=== PATIENT | female | born 1970 | race Caucasian/White ===

== ENCOUNTER → 2018-02-23 03:39 | Emergency (ER) | payer SELFPAY ==
[~2018-02-23 03:39] MED LIST: NS 0.9% 1000 ML* 1,000 ML IV ONE; Ondansetron INJ* 2 MG/ML VIAL IV ONE
--- NOTE | 2018-02-23 04:11 | ED ---
Complex/Multi-Sys Presentation - HPI Summary HPI Summary: A 47 y/o female presents to the ED c/o right arm pain since 18:00 02/22/2018. She describes the pain as an aching pain that worsens with movement. She also claims to have nausea, 5 episodes of diarrhea, feels clammy and she does not vomit but is having dry heaves. She denies CP, SOB or abd pain. - History Of Current Complaint Chief Complaint: EDNauseaVomitDiarrh Time Seen by Provider: 02/23/18 03:49 Hx Obtained From: Patient Onset/Duration: Sudden Onset Timing: Constant Aggravating Factor(s): movement - Allergies/Home Medications Allergies/Adverse Reactions: Allergies Allergy/AdvReac Type Severity Reaction Status Date / Time bandaids Allergy makes skin Uncoded 02/23/18 03:45 raw when left on 1-2+ days PMH/Surg Hx/FS Hx/Imm Hx Endocrine/Hematology History: Denies: Hx Diabetes Cardiovascular History: Reports: Hx Angina, Hx Hypertension - ON MEDICATION FOR Denies: Hx Coronary Artery Disease, Hx Hypercholesterolemia, Hx Myocardial Infarction, Hx Valvular Heart Disease Respiratory History: Denies: Hx Asthma, Hx Chronic Obstructive Pulmonary Disease (COPD) GI History: Reports: Hx Gastroesophageal Reflux Disease, Other GI Disorders - STOMACH NOTED ON IRRITATION NOTED ON EGD Sensory History: Reports: Hx Contacts or Glasses - INSTRUCTS GIVEN Denies: Hx Hearing Aid Opthamlomology History: Reports: Hx Contacts or Glasses - INSTRUCTS GIVEN Psychiatric History: Reports: Hx Bipolar Disorder - Cancer History Cancer Type, Location and Year: Basal Cell Skin CA arm and back, removed Hx Chemotherapy: No Hx Radiation Therapy: No - Surgical History Surgery Procedure, Year, and Place: hysterectomy 2009. cystocele, rectocele 2010. Bariatric surgery September 2015 Hx Anesthesia Reactions: No Infectious Disease History: No Infectious Disease History: Denies: Traveled Outside the [place] in Last 30 Days - Family History Known Family History: Positive: Hypertension - grandmother Negative: Cardiac Disease, Diabetes - Social History Alcohol Use: Occasionally Substance Use Type: Reports: None Smoking Status (MU): Former Smoker Amount Used/How Often: 1 PPD X 10-12 YEARS OFF AND ON Have You Smoked in the Last Year: No Review of Systems Positive: Skin Diaphoresis. Negative: Fever Negative: Chest Pain Negative: Shortness Of Breath Positive: Diarrhea, Nausea, Other - Positive: Dry-heaves. Negative: Abdominal Pain, Vomiting Positive: Myalgia - right arm pain All Other Systems Reviewed And Are Negative: Yes Physical Exam - Summary Physical Exam Summary: Appearance: Well appearing, no pain distress Skin: warm, dry, reflects adequate perfusion Head/face: normal Eyes: EOMI, TONY ENT: normal Neck: supple, non-tender Respiratory: CTA, breath sounds present Cardiovascular: tachycardic, regular rhythm, pulses symmetrical Abdomen: non-tender, soft Bowel: present Musculoskeletal: normal, strength/ROM intact Neuro: normal, sensory motor intact, A&Ox3 Triage Information Reviewed: Yes Vital Signs On Initial Exam: Initial Vitals Temp Pulse Resp BP Pulse Ox 99.5 F 119 16 144/93 98 02/23/18 03:41 02/23/18 03:41 02/23/18 03:41 02/23/18 03:41 02/23/18 03:41 Vital Signs Reviewed: Yes Diagnostics - Vital Signs Vital Signs Temp Pulse Resp BP Pulse Ox 02/23/18 03:41 99.5 F 119 16 144/93 98 - Laboratory Result Diagrams: 02/23/18 04:44 02/23/18 04:38 Lab Statement: Any lab studies that have been ordered have been reviewed, and results considered in the medical decision making process. - Radiology CXR Radiology Interpretation Completed By: ED Physician - negative-normal CXR. Pending official radiology report. - EKG 04:14 Cardiac Rate: NL - 98bpm EKG Rhythm: Sinus Rhythm Complex Multi-Symp Course/Dx Course Of Treatment: A 47 y/o female presents to the ED c/o right arm pain since 18:00 02/22/2018. She also claims to have nausea, 5 episodes of diarrhea, feels clammy and she does not vomit but is having dry heaves. Her PE revealed tachycardia. Her EKG is normal and her CXR is negative. The pt does not want to wait for an US so she left and plans on coming back. She will be discharged with a diagnosis of nausea, vomiting and right arm pain. - Diagnoses Differential Diagnoses/HQI/PQRI: Cardiac Ischemia, Metabolic Abnormality Provider Diagnoses: Nausea & vomiting, Right arm pain Discharge - Sign-Out/Discharge Documenting (check all that apply): Patient Departure - DC - Discharge Plan Condition: Stable Disposition: HOME Prescriptions: Ondansetron [Zofran Odt] 4 mg PO TID #15 tab.rapdis Patient Education Materials: Acute Nausea and Vomiting (ED), Arm Pain (ED) Referrals: [facility] [place] [facility]ERR[facility] [Outside] - 3 Days Additional Instructions: Return to the ED if you experience any new or worsening symptoms. - Billing Disposition and Condition Condition: STABLE Disposition: Home - Attestation Statements Document Initiated by Scribe: Yes Documenting Scribe: Amarjit Witt Provider For Whom Maritza is Documenting (Include Credential): Valentin Banda MD Scribe Attestation: Amarjit Woods, scribed for Valentin Banda MD on 02/23/18 at 0601. Scribe Documentation Reviewed: Yes Provider Attestation: The documentation as recorded by the Amarjit corbin accurately reflects the service I personally performed and the decisions made by me, Valentin Banda MD
[2018-02-23 04:52] LABS: ABS Basophils 0 10^3/ul (0-0.2); ABS Eosinophils 0.1 10^3/ul (0-0.6); ABS Lymphocytes 0.4 10^3/ul (1.0-4.8); ABS Monocytes 0.6 10^3/ul (0-0.8); ABS Neutrophils 8.7 10^3/ul (1.5-7.7); ABS Nucleated RBC 0 10^3/ul; Eosinophil % 0.8 % (0-6); Hematocrit 38 % (35-47); Lymphocyte % 4.1 % (25-47); Mean Corpuscular HGB Conc 34 g/dl (31-36); Mean Corpuscular Hemoglobin 32 pg (27-31); Mean Corpuscular Volume 94 fL (80-97); Mean Platelet Volume 7.2 um3 (7.4-10.4); Nucleated Red Blood Cells % 0; Platelet Count 213 10^3/ul (150-450); Red Blood Count 4.07 10^6/ul (4.00-5.40); Red Cell Distribution Width 13 % (10.5-15); White Blood Count 9.8 10^3/ul (3.5-10.8)
[2018-02-23 05:09] LABS: EGFR Non-African American 93.6 (>60)
[2018-02-23 05:41] VITALS: BP 119/78
--- NOTE | 2018-02-23 08:14 | RAD ---
Indication: Chest pain. Single frontal view of the chest performed at 0422 hours was reviewed. Comparison is made with previous exam dated June 15, 2012. No mediastinal shift is noted. Heart is of normal size and configuration. Lung lamar appear clear. IMPRESSION: NO ACTIVE CARDIOPULMONARY DISEASE IS NOTED. R0
== END | disposition home or self-care (01) ==
LOC: ED 03:39
DX: R11.2 Nausea with vomiting, unspecified (principal); M79.601 Pain in right arm; I10 Essential (primary) hypertension; Z85.828 Personal history of other malignant neoplasm of skin; F31.9 Bipolar disorder, unspecified; K21.9 Gastro-esophageal reflux disease without esophagitis
CPT/HCPCS: 36415; 71045; 80053; 83690; 84484; 84702; 85025; 93005; 96361; 96374; 99283; J2405

== ENCOUNTER 2021-02-09 12:09 | Observation (INO) ==
[2021-02-09 13:37] LABS: ABS Basophils 0.1 10^3/ul (0-0.2); ABS Eosinophils 0.1 10^3/ul (0-0.6); ABS Lymphocytes 1.4 10^3/ul (1.0-4.8); ABS Monocytes 0.3 10^3/ul (0-0.8); ABS Neutrophils 5.1 10^3/ul (1.5-7.7); Eosinophil % 1.7 %; Hematocrit 36 % (35-47); Hemoglobin 12.5 g/dL (12.0-16.0); Lymphocyte % 20.5 %; Mean Corpuscular HGB Conc 35 g/dL (31-36); Mean Corpuscular Hemoglobin 33 pg (27-31); Mean Corpuscular Volume 95 fL (80-97); Mean Platelet Volume 8.2 fL (7.4-10.4); Platelet Count 225 10^3/uL (150-450); Red Cell Distribution Width 13 % (10-15)
[2021-02-09 13:53] LABS: Albumin 4.1 g/dL (3.2-5.2); Albumin/Globulin Ratio 1.5 (1-3); C Reactive Protein 2.42 mg/L (<8.01); Calcium 9.3 mg/dL (8.6-10.3); Globulin 2.7 g/dL (2-4); Potassium 3.9 mmol/L (3.5-5.0); Total Bilirubin 0.4 mg/dL (0.2-1.0); Total Protein 6.8 g/dL (6.4-8.9)
[2021-02-09 14:35] LABS: TSH Ultra Thyroid Stim Horm 1.6 mcIU/mL (0.34-5.60)
[2021-02-09 15:24] LABS: Urine Appearance Clear; Urine Bilirubin Negative (Negative); Urine Blood Negative (Negative); Urine Color Yellow; Urine Glucose Negative (Negative); Urine Ketones Trace (Negative); Urine Nitrite Negative (Negative); Urine Protein Negative (Negative); Urine Specific Gravity 1.011 (1.002-1.030); Urine Urobilinogen Negative (Negative)
[2021-02-09 17:02] LABS: HDL Cholesterol 86.2 mg/dL
[2021-02-09 17:53] LABS: Rapid COVID-19 Molecular Undetected (Undetected)
[2021-02-09] MEDS ORDERED: Cyanocobalamin INJ 1,000 MCG/ML VIAL 1 ML VIAL IM ONE (21:00)
[2021-02-09 22:55] LABS: Erythrocyte Sed Rate 15 mm/Hr (0-29)
[2021-02-10 05:42] LABS: ABS Basophils 0.1 10^3/ul (0-0.2); ABS Eosinophils 0.2 10^3/ul (0-0.6); ABS Lymphocytes 1.9 10^3/ul (1.0-4.8); ABS Monocytes 0.4 10^3/ul (0-0.8); ABS Neutrophils 2.9 10^3/ul (1.5-7.7); Eosinophil % 3.7 %; Hematocrit 36 % (35-47); Hemoglobin 12.3 g/dL (12.0-16.0); Lymphocyte % 35.5 %; Mean Corpuscular HGB Conc 34 g/dL (31-36); Mean Corpuscular Hemoglobin 32 pg (27-31); Mean Corpuscular Volume 94 fL (80-97); Mean Platelet Volume 7.7 fL (7.4-10.4); Platelet Count 201 10^3/uL (150-450); Red Blood Count 3.86 10^6 /uL (3.70-4.87); Red Cell Distribution Width 13 % (10-15); White Blood Count 5.5 10^3/uL (3.5-10.8)
[2021-02-10 06:10] LABS: Calcium 9.2 mg/dL (8.6-10.3); Potassium 3.8 mmol/L (3.5-5.0)
[2021-02-10] MEDS ORDERED: Potassium Chlor 20 meq TAB.ER PO ONE (08:26)
[2021-02-10] MEDS ORDERED: MULTIPLE VITAMIN PO SCH (09:00)
[2021-02-10] MEDS ORDERED: Cholecalciferol (VIT D3) 1,000 unit TAB PO SCH (09:00)
[2021-02-10] MEDS ORDERED: VITAMIN B12 FOLIC ACID SL SCH (09:00)
[2021-02-10] MEDS ORDERED: Aspirin EC 81 mg TAB.EC (enteric coated) PO SCH (09:00)
[2021-02-10] MEDS ORDERED: Gadoteridol (CONTRAST) 279.3 MG/ML 10 ML IV ONE (13:29)
[2021-02-10] MEDS ORDERED: Perflutren Lipid Microsphere 3 ML VIAL ONE (15:02)
[2021-02-10 15:56] VITALS: BP 130/74
[2021-02-11 15:19] LABS: SS-A/Ro Antibody <0.2 U; SS-B/La Antibody <0.2 U
[2021-02-16 16:28] LABS: Methylmalonic Acid 0.12 nmol/mL (<=0.40)
== END 2021-02-10 18:10 | disposition home or self-care (01) ==
LOC: ED 12:09 → MEDTELE 12:09 → SUATTDRO 15:59 → MEDTELE 19:27
PROVIDERS: ADMIT Internal Medicine; ATTEND Internal Medicine